=== PATIENT | male | born 1990 | race African-American/Black ===

== ENCOUNTER 2017-02-23 01:06 | Emergency (ER) | payer MEDICAID ==
[~2017-02-23] VITALS: Ht 172.7 cm; Wt 67.0 kg
[~2017-02-23 01:06] MED LIST: ACET-2178; IBUP-2030; PVCXPC
[2017-02-23 01:19] VITALS: BP 153/92
== END 2017-02-23 04:04 | disposition left against medical advice (07) ==
LOC: ER 01:06
DX: R07.89 Other chest pain (principal); R05 Cough; Z53.21 Procedure and treatment not carried out due to patient leaving prior to being seen by health care provider
CPT/HCPCS: 93005

== ENCOUNTER 2018-09-14 20:39 | Emergency (ER) | payer MEDICAID, OTHER ==
[~2018-09-14] VITALS: Ht 167.6 cm; Wt 57.0 kg
[2018-09-14] MEDS ORDERED: MORPHINE SULFATE 4 MG/ML CPJ (NOT FOR IM USE) IV ONE (22:15)
[2018-09-14] MEDS ORDERED: ONDANSETRON HCL 4MG/2ML INJ IV ONE (22:15)
[2018-09-14] MEDS ORDERED: PROPOFOL 200MG/20ML VIAL IV ONE (22:15)
[2018-09-14] MEDS ORDERED: BACITRACIN ZINC OINT UDPKT TOP ONE (22:57)
[2018-09-15 02:01] VITALS: BP 155/99
== END 2018-09-15 02:11 | disposition home or self-care (01) ==
LOC: ER 20:39
DX: S52.592A Other fractures of lower end of left radius, initial encounter for closed fracture (principal); K21.9 Gastro-esophageal reflux disease without esophagitis; F12.10 Cannabis abuse, uncomplicated; V43.62XA Car passenger injured in collision with other type car in traffic accident, initial encounter; Y93.89 Activity, other specified; Y92.488 Other paved roadways as the place of occurrence of the external cause
CPT/HCPCS: 25605; 73090; 73100; 96374; 96375; 99152; 99285; J2270; J2405; J2704; Z7610